=== PATIENT | male | born 1945 | race Caucasian/White ===

== ENCOUNTER 2019-03-12 16:30 | Inpatient (IN) | payer MEDICARE, OTHER ==
[~2019-03-12] VITALS: Ht 170.2 cm; Wt 65.3 kg
[2019-03-12] MEDS ORDERED: ASPI81TA31 PO (17:03)
[2019-03-12] MEDS ORDERED: ATOR40TA PO (17:03)
[2019-03-12 18:30] VITALS: BP 132/66
[2019-03-13] MEDS ORDERED: MAG HYDROX/AL HYDROX/SIMETH 30 ML LIQUID UDC PO PRN (00:30)
[2019-03-13] MEDS ORDERED: MAGNESIUM HYDROXIDE 30 ML LIQUID UDC PO PRN (00:30)
[2019-03-13] MEDS: TEMAZEPAM 7.5 MG CAPSULE PO PRN ×2 (00:44→21:38)
[2019-03-13 08:30] VITALS: BP 102/55
[2019-03-13] MEDS: ACETAMINOPHEN 325 MG TABLET PO PRN ×3 (09:36→21:38)
[2019-03-13] MEDS: DULOXETINE 20 MG CAPSULE.DR PO SCH (12:48)
[2019-03-13 16:21] VITALS: BP 107/59
[2019-03-13 20:00] VITALS: BP 124/65
[2019-03-14] MEDS: ACETAMINOPHEN 325 MG TABLET PO PRN ×3 (04:17→17:20)
[2019-03-14 07:30] VITALS: BP 133/74
[2019-03-14] MEDS: MEGESTROL ACETATE 20 MG TABLET PO SCH ×3 (08:51→17:20)
[2019-03-14] MEDS: DULOXETINE 20 MG CAPSULE.DR PO SCH (13:20)
[2019-03-14 16:00] VITALS: BP 139/57
[2019-03-14 20:00] VITALS: BP 121/73
[2019-03-14] MEDS: MIRTAZAPINE 15 MG TABLET PO SCH (20:30)
[2019-03-15] MEDS: ACETAMINOPHEN 325 MG TABLET PO PRN ×3 (02:59→20:22)
[2019-03-15 07:30] VITALS: BP 115/65
[2019-03-15] MEDS: MEGESTROL ACETATE 20 MG TABLET PO SCH ×2 (09:14→16:48)
[2019-03-15] MEDS: DULOXETINE 20 MG CAPSULE.DR PO SCH (13:32)
[2019-03-15 16:00] VITALS: BP 125/63
[2019-03-15 20:00] VITALS: BP 121/64
[2019-03-15] MEDS: MIRTAZAPINE 15 MG TABLET PO SCH (20:22)
[2019-03-15] MEDS: TEMAZEPAM 7.5 MG CAPSULE PO PRN (21:59)
[2019-03-16] MEDS: ACETAMINOPHEN 325 MG TABLET PO PRN ×2 (05:38→16:28)
[2019-03-16 07:30] VITALS: BP 112/56
[2019-03-16] MEDS: MEGESTROL ACETATE 20 MG TABLET PO SCH ×2 (08:38→16:27)
[2019-03-16] MEDS: DULOXETINE 20 MG CAPSULE.DR PO SCH (13:12)
[2019-03-16 16:00] VITALS: BP 137/65
[2019-03-16 20:17] VITALS: BP 126/62
[2019-03-16] MEDS: MIRTAZAPINE 15 MG TABLET PO SCH (21:07)
[2019-03-16] MEDS: TEMAZEPAM 7.5 MG CAPSULE PO PRN (21:46)
[2019-03-17] MEDS: LORAZEPAM 0.5 MG TABLET PO PRN ×2 (04:12→18:42)
[2019-03-17] MEDS: ACETAMINOPHEN 325 MG TABLET PO PRN ×2 (04:15→11:35)
[2019-03-17 06:53] LABS: BASOPHILS # (AUTO) 0.1 K/uL (0.0-8.0); BASOPHILS % (AUTO) 0.9 % (0.0-2.0); EOSINOPHILS # (AUTO) 0.3 K/uL (0.0-0.7); EOSINOPHILS % (AUTO) 3.1 % (0.0-7.0); HEMATOCRIT 34.4 % (36.7-47.1); HEMOGLOBIN 11.6 g/dL (12.5-16.3); LYMPHOCYTES % (AUTO) 38.8 % (20.5-51.5); MEAN CORPUSCULAR HEMOGLOBIN 31.2 uug (23.8-33.4); MEAN CORPUSCULAR HGB CONC 34 g/dL (32.5-36.3); MEAN CORPUSCULAR VOLUME 92.3 fL (73.0-96.2); MONOCYTES # (AUTO) 0.7 K/uL (2.0-10.0); NEUTROPHILS # (AUTO) 5.2 K/uL (1.8-8.9); NEUTROPHILS % (AUTO) 50.2 % (38.5-71.5); PLATELET COUNT (AUTO) 228 K/uL (152-348); RED BLOOD CELL COUNT(AUTO) 3.73 MIL/uL (4.06-5.63); WHITE BLOOD COUNT (AUTO) 10.4 K/uL (3.6-10.2)
[2019-03-17 07:15] LABS: THYROID STIMULATING HORMONE 2.284 mIU/mL (0.358-3.740)
[2019-03-17 07:30] VITALS: BP 112/60
[2019-03-17 07:33] LABS: ALANINE AMINOTRANSFERASE 23 U/L (16-63); ALKALINE PHOSPHATASE 91 U/L (50-136); ASPARTATE AMINOTRANSFERASE 14 U/L (15-37); BILIRUBIN,TOTAL 0.4 mg/dL (0.2-1.0); CARBON DIOXIDE 26 mmol/L (21-32); CHLORIDE 103 mmol/L (98-107); CREATININE 2.2 mg/dL (0.6-1.3); GLUCOSE 92 mg/dL (74-106); PHOSPHOROUS 3.2 mg/dL (2.5-4.9); POTASSIUM 3.2 mmol/L (3.5-5.1); TOTAL PROTEIN, SERUM 7.2 g/dL (6.4-8.2); UREA NITROGEN, BLOOD 21 mg/dL (7-18)
[2019-03-17] MEDS: ASPIRIN 81 MG TAB.CHEW PO SCH (09:01)
[2019-03-17] MEDS: MEGESTROL ACETATE 20 MG TABLET PO SCH ×2 (09:01→16:37)
[2019-03-17] MEDS: DULOXETINE 20 MG CAPSULE.DR PO SCH (12:26)
[2019-03-17] MEDS ORDERED: POTASSIUM CHLORIDE 20 MEQ TAB.PRT.SR PO ONE (15:00)
[2019-03-17 16:37] VITALS: BP 118/56
[2019-03-17 20:43] VITALS: BP 120/62
[2019-03-17] MEDS: MIRTAZAPINE 15 MG TABLET PO SCH (21:51)
[2019-03-18 07:30] VITALS: BP 97/53
[2019-03-18] MEDS: MEGESTROL ACETATE 20 MG TABLET PO SCH ×2 (08:04→17:17)
[2019-03-18] MEDS: ACETAMINOPHEN 325 MG TABLET PO PRN ×3 (08:04→20:10)
[2019-03-18] MEDS: ASPIRIN 81 MG TAB.CHEW PO SCH (08:04)
[2019-03-18] MEDS: DULOXETINE 20 MG CAPSULE.DR PO SCH (13:08)
[2019-03-18 16:37] VITALS: BP 114/71
[2019-03-18] MEDS: MIRTAZAPINE 15 MG TABLET PO SCH (20:10)
[2019-03-18 20:22] VITALS: BP 119/65
[2019-03-18] MEDS: TEMAZEPAM 7.5 MG CAPSULE PO PRN (23:21)
[2019-03-19] MEDS: ACETAMINOPHEN 325 MG TABLET PO PRN ×3 (06:29→20:19)
[2019-03-19 06:59] LABS: BASOPHILS # (AUTO) 0.1 K/uL (0.0-8.0); BASOPHILS % (AUTO) 1.4 % (0.0-2.0); EOSINOPHILS # (AUTO) 0.4 K/uL (0.0-0.7); EOSINOPHILS % (AUTO) 4.3 % (0.0-7.0); HEMATOCRIT 32.3 % (36.7-47.1); HEMOGLOBIN 10.9 g/dL (12.5-16.3); LYMPHOCYTES # (AUTO) 3.5 K/uL (20.0-40.0); MEAN CORPUSCULAR HEMOGLOBIN 31.2 uug (23.8-33.4); MEAN CORPUSCULAR HGB CONC 34 g/dL (32.5-36.3); MEAN CORPUSCULAR VOLUME 92.5 fL (73.0-96.2); MONOCYTES # (AUTO) 0.6 K/uL (2.0-10.0); MONOCYTES % (AUTO) 7.3 % (0.0-11.0); NEUTROPHILS # (AUTO) 4.1 K/uL (1.8-8.9); PLATELET COUNT (AUTO) 217 K/uL (152-348); RED BLOOD CELL COUNT(AUTO) 3.49 MIL/uL (4.06-5.63); WHITE BLOOD COUNT (AUTO) 8.7 K/uL (3.6-10.2)
[2019-03-19 07:15] LABS: CARBON DIOXIDE 25 mmol/L (21-32); CHLORIDE 107 mmol/L (98-107); GLUCOSE 98 mg/dL (74-106); MAGNESIUM 1.9 mg/dL (1.8-2.4); PHOSPHOROUS 3.2 mg/dL (2.5-4.9); POTASSIUM 3.4 mmol/L (3.5-5.1); UREA NITROGEN, BLOOD 20 mg/dL (7-18)
[2019-03-19 07:30] VITALS: BP 105/58
[2019-03-19] MEDS: ASPIRIN 81 MG TAB.CHEW PO SCH (08:47)
[2019-03-19] MEDS: MEGESTROL ACETATE 20 MG TABLET PO SCH ×2 (08:47→16:30)
[2019-03-19] MEDS: DULOXETINE 20 MG CAPSULE.DR PO SCH (12:44)
[2019-03-19] MEDS ORDERED: POTASSIUM CHLORIDE 10 MEQ TAB.PRT.SR PO ONE (15:00)
[2019-03-19 16:06] VITALS: BP 114/59
[2019-03-19 18:54] LABS: *BILIRUBIN,URIN NEGATIVE (NEGATIVE); *COLOR,URINE YELLOW (YELLOW); *KETONES,URINE NEGATIVE (NEGATIVE); *UROBILINOGEN,URINE 0.2 E.U./dl (NORMAL); LEUKOCYTE ESTERASE ,URINE 1+ (NEGATIVE); NITRITE, URINE POSITIVE (NEGATIVE); PH,URINE 6.5 (5.0-8.0); UGLUCOSE NEGATIVE (NEGATIVE)
[2019-03-19 18:57] LABS: *BLOOD, URINE TRACE (NEGATIVE); *CLARITY,URINE HAZY (CLEAR)
[2019-03-19 19:25] LABS: BACTERIA,URINE MANY /HPF (NONE SEEN); SQUAMOUS EPITHELIAL CELL,UR FEW /HPF (NONE SEEN)
[2019-03-19 20:00] VITALS: BP 116/64
[2019-03-19] MEDS: MIRTAZAPINE 15 MG TABLET PO SCH (20:04)
[2019-03-19] MEDS: TEMAZEPAM 7.5 MG CAPSULE PO PRN (21:58)
[2019-03-19 23:21] LABS: *CREATININE,URINE 241.6 mg/dL (30-125); *URINE TOTAL PROTEIN RANDOM 101.2 mg/dL (<150/24HR)
[2019-03-20] MEDS: ACETAMINOPHEN 325 MG TABLET PO PRN (02:58)
[2019-03-20 07:18] LABS: BASOPHILS # (AUTO) 0.1 K/uL (0.0-8.0); EOSINOPHILS # (AUTO) 0.3 K/uL (0.0-0.7); EOSINOPHILS % (AUTO) 3.4 % (0.0-7.0); HEMATOCRIT 35.8 % (36.7-47.1); LYMPHOCYTES # (AUTO) 3.8 K/uL (20.0-40.0); LYMPHOCYTES % (AUTO) 42.1 % (20.5-51.5); MEAN CORPUSCULAR HEMOGLOBIN 31.1 uug (23.8-33.4); MEAN CORPUSCULAR HGB CONC 34 g/dL (32.5-36.3); MEAN CORPUSCULAR VOLUME 92.5 fL (73.0-96.2); MONOCYTES # (AUTO) 0.6 K/uL (2.0-10.0); MONOCYTES % (AUTO) 6.7 % (0.0-11.0); NEUTROPHILS # (AUTO) 4.2 K/uL (1.8-8.9); NEUTROPHILS % (AUTO) 46.8 % (38.5-71.5); PLATELET COUNT (AUTO) 245 K/uL (152-348); RED BLOOD CELL COUNT(AUTO) 3.87 MIL/uL (4.06-5.63)
[2019-03-20 07:30] VITALS: BP 105/57
[2019-03-20 07:31] LABS: ALANINE AMINOTRANSFERASE 16 U/L (16-63); ALKALINE PHOSPHATASE 90 U/L (50-136); ASPARTATE AMINOTRANSFERASE 11 U/L (15-37); BILIRUBIN,TOTAL 0.4 mg/dL (0.2-1.0); CARBON DIOXIDE 24 mmol/L (21-32); CHLORIDE 103 mmol/L (98-107); CREATINE KINASE, TOTAL 56 U/L (39-308); GLUCOSE 91 mg/dL (74-106); PHOSPHOROUS 3.1 mg/dL (2.5-4.9); POTASSIUM 3.4 mmol/L (3.5-5.1); TOTAL PROTEIN, SERUM 7.4 g/dL (6.4-8.2); UREA NITROGEN, BLOOD 18 mg/dL (7-18)
[2019-03-20] MEDS: ASPIRIN 81 MG TAB.CHEW PO SCH (08:21)
[2019-03-20] MEDS: MEGESTROL ACETATE 20 MG TABLET PO SCH ×2 (08:21→16:45)
[2019-03-20] MEDS ORDERED: POTASSIUM CHLORIDE 10 MEQ TAB.PRT.SR PO ONE (10:45)
[2019-03-20] MEDS: DULOXETINE 20 MG CAPSULE.DR PO SCH (12:16)
[2019-03-20] MEDS: LORAZEPAM 0.5 MG TABLET PO PRN (12:16)
[2019-03-20 15:29] VITALS: BP 98/70
[2019-03-20 20:38] VITALS: BP 164/59
[2019-03-20] MEDS: MIRTAZAPINE 15 MG TABLET PO SCH (21:28)
[2019-03-20] MEDS: TEMAZEPAM 7.5 MG CAPSULE PO PRN (21:32)
[2019-03-21 07:30] VITALS: BP 109/59
[2019-03-21] MEDS: ASPIRIN 81 MG TAB.CHEW PO SCH (08:27)
[2019-03-21] MEDS: MEGESTROL ACETATE 20 MG TABLET PO SCH ×2 (08:27→16:52)
[2019-03-21 12:06] LABS: ALBUMIN 3.3 g/dL (2.9-4.4); ALPHA-1-GLOBULIN 0.3 g/dL (0.0-0.4); BETA GLOBULIN 0.6 g/dL (0.7-1.3); GAMMA GLOBULIN 1.4 g/dL (0.4-1.8); GLOBULIN, TOTAL 3.4 g/dL (2.2-3.9); M-SPIKE 0.8 g/dL (Not Observed)
[2019-03-21] MEDS: DULOXETINE 20 MG CAPSULE.DR PO SCH (12:22)
[2019-03-21] MEDS: LORAZEPAM 0.5 MG TABLET PO PRN ×2 (12:29→18:29)
[2019-03-21 16:00] VITALS: BP 96/62
[2019-03-21 19:51] VITALS: BP 114/62
[2019-03-21] MEDS: MIRTAZAPINE 15 MG TABLET PO SCH (21:11)
[2019-03-26] MEDS ORDERED: CEphaleXIN 250 MG CAPSULE PO SCH (10:45)
== END 2019-03-21 22:03 | disposition home or self-care (01) | DRG 885 ==
LOC: ER 16:32 → GPS 18:20
PROVIDERS: ADMIT Psychiatry & Neurology Psychosomatic Medicine; ATTEND Internal Medicine
DX: F33.2 Major depressive disorder, recurrent severe without psychotic features (principal); G93.41 Metabolic encephalopathy; N17.0 Acute kidney failure with tubular necrosis; N39.0 Urinary tract infection, site not specified; E46 Unspecified protein-calorie malnutrition; T65.92XD Toxic effect of unspecified substance, intentional self-harm, subsequent encounter; F41.9 Anxiety disorder, unspecified; G89.4 Chronic pain syndrome; E87.6 Hypokalemia; D63.8 Anemia in other chronic diseases classified elsewhere; I12.9 Hypertensive chronic kidney disease with stage 1 through stage 4 chronic kidney disease, or unspecified chronic kidney disease; N18.9 Chronic kidney disease, unspecified; Z91.5 Personal history of self-harm; G47.00 Insomnia, unspecified; E78.5 Hyperlipidemia, unspecified; Z68.22 Body mass index [BMI] 22.0-22.9, adult
CPT/HCPCS: 36415; 76770; 83735; 83970; 84100; 84155; 84156; 84165; 84300; 84443; 85025; A4663